=== PATIENT | female | born 1960 | race Caucasian/White ===

== ENCOUNTER 2020-08-27 05:10 | Day surgery (SDC) | payer BC ==
[2020-08-24 15:03] LABS: BASOPHILS 0.7 % (0-2); HEMATOCRIT 39.5 % (36.0-48.0); HEMOGLOBIN 13.5 g/dL (12-16); IMMATURE GRANULOCYTES 0.1 % (0-5); LYMPHOCYTE ABS# 3.13 10x3/uL (1.18-3.74); LYMPHOCYTES 37.6 % (15-50); MCH 29.2 pg (26.0-34.0); MCHC 34.2 g/dL (31.0-37.0); MCV 85.5 fL (80.0-100.0); MEAN PLATELET VOLUME 8.8 fL (7.4-10.4); MONOCYTES 8.9 % (2-11); NEUTROPHIL ABS# 3.97 10x3/uL (1.56-6.13); NEUTROPHILS 47.7 % (40-80); PLATELET COUNT 253 10x3/uL (130-400); RBC 4.62 10x6/uL (4.00-5.40); RDW 12.9 % (11.5-14.5); WBC 8.3 10x3/uL (4.8-10.8)
[2020-08-24 15:20] LABS: ANION GAP 13.8 mmol/L (8-16); CALCIUM 8.7 mg/dL (8.5-10.1); CARBON DIOXIDE 25.9 mmol/L (21.0-32.0); CREATININE - SERUM 0.9 mg/dL (0.6-1.3); POTASSIUM - SERUM 3.7 mmol/L (3.5-5.1)
[~2020-08-27] VITALS: Ht 160 cm; Wt 86.2 kg
[~2020-08-27 05:10] MED LIST: ALEVE220 MG PO; LISINOPRIL10 MG PO; NP THYROID30 MG PO
[2020-08-27] MEDS ORDERED: TYLENOL PM (05:46)
[2020-08-27 06:01] VITALS: BP 134/75; Ht 160 cm; Wt 86.2 kg
--- NOTE | 2020-08-27 09:16 | NUR ---
DR COOK INFORMED OF PT POTASSIUM LEVEL.
--- NOTE | 2020-08-27 09:33 | NUR ---
DC INSTRUCTIONS GIVEN TO PT. STATES UNDERSTANDING. DC'D IV CATH FULLY INTACT. PT VOIDED. PT LEFT UNIT VIA AT 1036.
--- NOTE | 2020-08-27 12:03 | OP ---
PATIENT NAME: ERNESTO PERALTA MEDICAL RECORD: [id number] :56 LOCATION:[facility] ADMISSION DATE: SURGEON: TEAGAN WEST DO DATE OF OPERATION: 08/27/2020 PROCEDURE PERFORMED: Bilateral endoscopic carpal tunnel release. PREOPERATIVE DIAGNOSIS: Bilateral carpal tunnel syndrome. POSTOPERATIVE DIAGNOSIS: Bilateral carpal tunnel syndrome. INDICATIONS: Ms. Peralta is a 60-year-old female who has had bilateral carpal tunnel symptoms for quite some time. She had a nerve conduction study showing that she had carpal tunnel syndrome on both with the right being worse than the left. She is tired of dealing with the pain and wanted something done surgically. I informed of the risks including infection, bleeding, damage to the median nerve, recurrent branch of the median nerve is there, transligamentous nerve and continued pain and numbness. She is okay with that as well as need for further surgery and signed the consent. SURGEON: Teagan West DO DESCRIPTION OF PROCEDURE: The patient was taken to the operative suite, laid in supine position, given general anesthetic, 2 grams of Ancef and LMA was placed. Bilateral upper extremities were prepped and draped in sterile fashion. Timeout was performed. Everyone was in agreement with correct side, site, patient and procedure. I then started with the right and exsanguinated the right upper extremity with an Esmarch and tourniquet was inflated to 250 mmHg, it was up for 7 minutes. We then made an incision centered over the palmaris longus tendon and then just through the skin and then used a Ragnell to bluntly dissect down to the median nerve, released the fascia from and then incision site from distal to proximal in the forearm and then entered the carpal tunnel with the dilators and the sheath was brought in. I then brought in the camera and used a rasp and a probe to clean off the transverse carpal ligament, ensuring there was no transligamentous nerve and I did not note one. I then brought in a blade and raised it up and transected the transverse carpal ligament, fat herniated down into the carpal tunnel, indicating a good release. I then removed all the instruments and used a Ragnell and scissors and made sure there were no remaining fibers of the transverse carpal ligament and there were not. We then let the tourniquet down and injected with 10 mL of 0.25% Marcaine with epinephrine. I then held pressure, there was some bleeding. I then closed the wound with 5-0 Monocryl in inverted interrupted fashion and placed Dermabond glue on it. Once it dried just dressed it with 4 x 4s, Kerlix, and Coban lightly wrapped and then went to the left side. The tourniquet was up for 7 minutes on the right. I went to the left. I exsanguinated the left upper extremity with an Esmarch, tourniquet was inflated to 250 mmHg, was up for 5 minutes. I made an incision centered over the palmaris longus tendon with careful dissection down to the median nerve and released the forearm fascia through the incision from distal to proximal and then went into the carpal tunnel with the dilators, brought the sheath in and brought the camera in and brought in a probe and rasped cleaned off the transverse carpal ligament and brought in the blade, raised it up, transected the transverse carpal ligament, fat herniated down into the carpal tunnel. I then removed the instruments and used the long end of the Ragnell and inspected the transverse carpal ligament and used scissors to make sure there were no remaining fibers connected and OPERATIVE REPORT [id number] ERNESTO PERALTA there were not. I then injected with 10 mL of 0.25% Marcaine with epinephrine and let the tourniquet down. I then closed with 5-0 Monocryl in inverted interrupted fashion and placed Dermabond glue on the incision. She was then dressed with 4 x 4s, Kerlix and Coban lightly wrapped. She was awakened and taken to recovery in stable condition. BLOOD LOSS: Minimal. COMPLICATIONS: None. TRANSINT:[id number] Voice Confirmation ID: [id number] DOCUMENT ID: [id number] TEAGAN WEST DO at 1203 CC: [id number] DICTATION DATE: 08/27/20924 PICTURE ENGRAVER: 08/27/20 1139 [facility] 08/27/20 [facility] [address] [place] [address]
== END 2020-08-27 09:33 | disposition home or self-care (01) ==
LOC: D.OPS 05:10
PROVIDERS: Anesthesiology; ATTEND Orthopaedic Surgery
DX: G56.03 Carpal tunnel syndrome, bilateral upper limbs (principal); M79.642 Pain in left hand; M79.641 Pain in right hand